=== PATIENT | female | born 1940 | race Caucasian/White ===

== ENCOUNTER 2024-12-16 12:16 | Inpatient (IN) | payer MEDICARE, SELFPAY ==
[2024-12-16] VITALS (14 sets, daily range): BP systolic 96–183; BP diastolic 66–139; PULSE 65–111; RESP 14–24; TEMP 36.2–36.3; O2SAT 92–98; BMI 34.9; BMI 34.4
--- NOTE | 2024-12-16 12:15 | EKG12_ITS ---
Test Reason : Blood Pressure : */* mmHG Vent. Rate : 99 BPM Atrial Rate : 99 BPM P-R Int : 264 ms QRS Dur : 66 ms QT Int : 322 ms P-R-T Axes : * 31 3 degrees QTcB Int : 413 ms Sinus rhythm with 1st degree A-V block Septal infarct , age undetermined Abnormal ECG Confirmed by ANDERS PEREIRA, JOSE ([id number]), newspaper managing editor ROBERTO ALMEIDA ([id number]) on 12/19/2024 8:31:58 AM Referred By: Confirmed By: JOSE MCNAMARA MD
[2024-12-16] MEDS: 0.9% Normal Saline (1000mL) 1,000 ML 999 ML IV (12:18)
--- NOTE | 2024-12-16 12:18 | EX.ED.DYSGE1 ---
HPI History of Present Illness Informant: EMS Narrative Narrative: 84-year-old female was bit by EMS for not feeling well, they state just prior to arrival here she became bradycardic in the 20s, they started supportive care and they shocked the patient with 200 J just prior to arrival because the paramedics thought maybe she was in ventricular fibrillation. I was called to the room upon EMS arrival was a CODE BLUE because the patient lost her pulse and CPR was begun by staff and they gave a milligram of epinephrine. History very limited. PFSH PFSH Home Medications ?Medication ?Instructions ?Recorded ?Last Taken ?Type aspirin 81 mg tablet 81 mg PO DAILY for my heart 12/16/24 12/16/24 History atorvastatin 80 mg tablet 80 mg PO QHS cholesterol 12/16/24 12/15/24 History dulaglutide 4.5 mg/0.5 mL 4.5 mg subcut QWEEK Diabetes 12/16/24 12/05/24 History subcutaneous pen injector (Trulicity) ezetimibe 10 mg tablet 10 mg PO DAILY cholesterol 12/16/24 12/16/24 History lisinopril 40 mg tablet 40 mg PO DAILY BP 12/16/24 12/16/24 History metformin 500 mg tablet 1,000 mg PO BID Diabetes 12/16/24 12/16/24 History metoprolol tartrate 100 mg tablet 200 mg PO BID for my heart 12/16/24 12/16/24 History pioglitazone 45 mg tablet 45 mg PO DAILY Diabetes 12/16/24 12/16/24 History spironolactone 100 mg tablet 100 mg PO DAILY For my Heart 12/16/24 12/16/24 History verapamil 240 mg tablet,extended 240 mg PO BID For ,my heart 12/16/24 12/16/24 History release Allergy/AdvReac Type Severity Reaction Status Date / Time No Known Allergies Allergy Verified 12/16/24 17:20 Social History Smoking Status: Never smoker ROS ROS ED Review of Systems ROS Unobtainable: due to mental status EXAM Physical Exam Const Vital Signs: 12/16/24 12:10 12/16/24 12:15 12/16/24 12:16 Temperature 97.1 F L Temperature Source Axillary Pulse Rate 70 Pulse Rate [3] 111 H Pulse Rate [4] 70 Respiratory Rate 16 17 Respiratory Rate [3] 24 H Respiratory Rate [4] 16 Blood Pressure 183/96 H Blood Pressure [3] 173/94 H Blood Pressure [4] 96/66 Blood Pressure Mean 125 Pulse Ox 94 94 95 Oxygen Delivery Method Nasal Cannula Non-Rebreather Non-Rebreather @ 15L/min Oxygen Flow Rate (L/min) 2 12/16/24 12:16 12/16/24 15:00 12/16/24 15:56 Temperature Temperature Source Pulse Rate 70 65 69 Pulse Rate [3] Pulse Rate [4] Respiratory Rate 18 17 14 Respiratory Rate [3] Respiratory Rate [4] Blood Pressure 183/96 H 101/72 140/103 H Blood Pressure [3] Blood Pressure [4] Blood Pressure Mean 125 81 115 Pulse Ox 94 96 95 Oxygen Delivery Method Non-Rebreather @ 15L/min Room Air Room Air Oxygen Flow Rate (L/min) Positive well nourished, well developed and obese General Appearance ED: well developed and pallor Orientation / Consciousness: obtunded Exam Limitations: altered mental status Nutritional Appearance: obese HEENT normocephalic and atraumatic Eyes PERRL Neck supple Chest Wall inspection of chest normal and palpation of chest normal Resp Resp Narrative: intact slow spontaneous respirations. Breath sounds are bilaterally clear; being assisted by respiratory with bagging. Cardio Cardio Narrative: Normal bradycardic heart sounds. Central pulses palpable with CPR on initial exam; after atropine, 2+ radials. GI non-tender, non-distended and no masses Palpation: soft Neuro Neuro Narrative: stuporous, in and out of consciousness; after more alert w/ atropine, moves all 4 extremities, GCS 3/6/2 = 11. Skin General Skin Exam: pallor Lesions: no lesions Rashes: no rashes MDM MDM MDM Narrative Medical decision making narrative: Patient has no prior records. We were performing some CPR when I evaluated her, but she started moving and groaning so we stop CPR, there was pulse, it was thready, she had a rhythm that was low in the 30s so we gave 1 mg of atropine, and she quickly went up to the 90s and regain consciousness and became dry heaving so we sat her up and gave her some Zofran and IV fluids. She is able to follow commands moving all 4 extremities. EKG obtained at this time and she has a good blood pressure. EKG shows a first-degree AV block but is otherwise fairly unremarkable. Subsequently, patient more arousable, awake, conversive, she feels a lot better and back to normal. She states prior to arrival she was feeling lightheaded like she was going to pass out. She did not have any other symptoms. She states this happened 2 weeks ago where she felt lightheaded but she felt her heart racing/palpitations, but it was relatively brief and went away and she did not present for care. She states she is on verapamil and metoprolol tartrate, the verapamil though she does not have with her but the metoprolol is 100 mg twice daily, she knows she was put on the verapamil because of palpitations in the past but has not seen a api product manager for a long time and it was out of this area and does not know why she is on the metoprolol as well. She denies taking more than she has been supposed to. Discussed with Dr. beckwith and sent him EKG and the EMS strip, okmichael for consulting/keeping the patient. Patient did well clinically, labs reviewed. 1 view chest x-ray shows some pulmonary venous congestion. Lab Data Attestation: I reviewed the patient's lab results. Labs: Laboratory Results - last 24 hr 12/16/24 12/16/24 12:20 14:45 WBC 16.8 H RBC 3.92 L Hgb 11.8 L Hct 37.3 MCV 95.2 MCH 30.1 MCHC 31.6 L RDW Std Deviation 50.2 H RDW Coeff of Graeme 14.4 Plt Count 284 MPV 9.2 Immature Gran % (Auto) 4.600 H Neut % (Auto) 44.4 L Lymph % (Auto) 41.3 H [place] % (Auto) 8.4 Eos % (Auto) 0.7 Baso % (Auto) 0.6 Absolute Neuts (auto) 7.4 Absolute Lymphs (auto) 6.91 H Nucleated RBC % 0.4 Reactive Lymphocytes 1+ Sodium 130 L Potassium 5.4 H Chloride 96 L Carbon Dioxide 14.6 L Anion Gap 19 H BUN 23 H Creatinine 1.73 H Estim Creat Clear Calc 23.27 L Est GFR (MDRD) Non-Af 29 L BUN/Creatinine Ratio 13.4 Glucose 426 H Calcium 8.5 Troponin T High Sens 17 H Troponin T Hi Sens 2 Hr 18 H ABG Data ABG results: ABG 12/16/24 12:24 Specimen Type ART Sample Site L Brach pH 7.24 L Bicarbonate Actual 12.1 L Total CO2 13 Base Excess -15 L O2 Saturation 99 O2 % 100.0 ABG pCO2 28.0 L ABG pO2 184 H Lenny Test Positive O2 Delivery Device NRB Vent Mode Not entered Radiography Diagnostic Testing: Clinical Impression(s) from Imaging Studies Chest X-Ray 12/16/24 12:56 IMPRESSION: No acute cardiopulmonary process Reading Location: [id number] Rhythm Strip Rhythm Strip: Bradycardia? Junctional versus ventricular Rate: 30 Ectopy: None EKG Initial EKG: Attestation: I personally reviewed and interpreted this EKG as follows: Interpretation: Sinus Rhythm (At 99, after atropine see above), No Acute Injury Pattern and AV Block (First-degree) Prior EKG tracings: not available for review Prior: No Prior Management Discussion w/another healthcare provider: Hospitalist and Automatic Corn Grinder Operator Critical Care Time Critical Care Time: Yes Critical care time (excluding procedures): 30-74 minutes (41 min), Including time spent:, Discussing w/Patient &/or Family/Concrete Panel Installer, Discussing w/Consultants, Arranging Admission or Transfer and Performing Direct Patient Care at Bedside Discharge Plan Dx/Rx/DC Orders Clinical Impression: Symptomatic bradycardia, Syncope and collapse, Cardiopulmonary arrest with successful resuscitation Disposition Disposition: [facility] Discharge Date/Time: 12/16/24 17:15
[2024-12-16 12:27] LABS: Allen Test Positive; Base Excess -15 mmol/L (-2 to +2); FI02 100.0; PO2 184 mmHG (75-100); SITE L Brach; SO2 99 % (95-99)
[2024-12-16 12:37] LABS: Differential Indicated SCAN CRITERIA MET; Hematocrit 37.3 % (37-47); Hemoglobin 11.8 g/dL (12.0-15.0); Immature Granulocytes Count 0.770 X10^3/uL (0.0-0.0); Mean Corp Hgb Conc 31.6 g/dL (32-36); Mean Corpuscular Volume 95.2 fL (81-99); Mean Platelet Vol. 9.2 fl (6.2-12.0); NRBC Flagged by Analyzer 0.4 % (0-5); POSITIVE DIFFERENTIAL YES; Platelet Count 284 K/mm3 (150-450); RBC Distribution Width CV 14.4 % (11.6-14.6); RBC Distribution Width SD 50.2 fl (35.1-43.9); Red Blood Count 3.92 M/mm3 (4.2-5.4); White Blood Count 16.8 K/mm3 (4.4-11.0)
--- NOTE | 2024-12-16 12:56 | RAD_ITS ---
PROCEDURE: CHEST 1 VIEW (PORTABLE) 12/16/2024 REASON FOR EXAM: CHEST PAIN TECHNIQUE: Frontal view of the chest. COMPARISON: None FINDINGS: Hardware: EKG leads are seen. Heart: Normal Lungs: Subsegmental atelectasis right lung base. Otherwise, the lungs are clear. Bones: Degenerative changes are identified within the thoracic spine. RAD/Chest 1 View (Portable) IMPRESSION: No acute cardiopulmonary process Reading Location: [id number]
[2024-12-16 13:11] LABS: Reactive Lymphocyte 1+
[2024-12-16 14:15] LABS: Anion Gap 19 (5-15); BUN 23 mg/dL (4-19); BUN/Creat Ratio 13.4 RATIO (10-20); Calcium,Total 8.5 mg/dL (7.6-11.0); Carbon Dioxide 14.6 mmol/L (21.0-32.0); Chloride 96 mmol/L (98-108); Estimated Creatinine Clearance 23.27 ml/min (50-250); Glucose 426 mg/dL (70-99); Potassium 5.4 mmol/L (3.3-5.1); Troponin T High Sensitivity 17 ng/L (<=14)
[2024-12-16 15:25] LABS: Troponin T High Sens 2 HR 18 ng/L (<=14)
--- NOTE | 2024-12-16 16:23 | HP.PCM.HOS_ITS ---
HPI - General General Date of Admission: 12/16/24 Date of Service: 12/16/24 Chief Complaint: gen weakness HPI Narrative JULY AGUIAR, is a 84-year-old female with a history of palpitations and tremors, hypertension and diabetes presented to [facility] ED 12/16/2024 with generalized weakness. [id number] called EMS due to patient being significantly weak since this morning, in the EMS patient became bradycardic in the 20s and started supportive care and there was concern that she may have devolved into V-fib so she was shocked with 200 J just prior to arrival. Patient was called CODE BLUE upon arrival as she reportedly lost her pulse. She got a milligram of epinephrine and CPR started however she started moving so CPR was stopped. Heart rate at the time was in the 30s so she was given 1 mg of atropine and quickly went up to the 90s and regained consciousness. Reportedly patient is on verapamil and metoprolol due to palpitations. In the ED after heart rate improved and patient clinically improved temperature 97.1, heart rate of 78 with blood pressure 183/96, pulse ox 95% and was on rebreather temporarily and then placed on room air. ABG with pH of 7.24, bicarb of 12 and pCO2 of 28. Labs on arrival with a white blood cell count of 16.8 and hemoglobin 11.8. BMP with a sodium of 130, potassium 5.4, bicarb of 14.6 with a gap of 19 and a BUN of 23, creatinine 1.73 but no labs available in our system since 2011, glucose 426. First troponin 17 with a repeat of 18. Chest x-ray with no acute process. ED physician contacted cardiology who recommended admission and she will be seen in consult. Hospitalist contacted for admission. Patient reports history as above, she is feeling weak earlier today so her [id number] called the squad. Notes something similar happened 2 weeks ago however she felt she had a rapid heartbeat and felt sick to her stomach but this ultimately resolved independently. Presently patient feeling better and less weak in the ED ROS ROS Narrative General: Denies fever/chills HENT: Denies headache, denies stuffy nose, denies sore throat EYES: Denies changes in vision Resp: Denies cough, denies shortness of breath Cardiac: Denies chest pain GI: Denies abdominal pain, denies changes in bowel, denies nausea/vomiting : Denies changes in urination Extremity: Denies swelling MSK: Had some generalized weakness that is improved from earlier Neuro: Denies any numbness/tingling Heme: Denies any bleeding or bruising Skin: Denies rashes Psychiatric: No complaints voiced Vital Signs Vital Signs Vital Signs: 12/16/24 12:10 12/16/24 12:15 12/16/24 12:16 Temperature 97.1 F L Temperature Source Axillary Pulse Rate 70 Pulse Rate [3] 111 H Pulse Rate [4] 70 Respiratory Rate 16 17 Respiratory Rate [3] 24 H Respiratory Rate [4] 16 Blood Pressure 183/96 H Blood Pressure [3] 173/94 H Blood Pressure [4] 96/66 Blood Pressure Mean 125 Pulse Ox 94 94 95 Oxygen Delivery Method Nasal Cannula Non-Rebreather Non-Rebreather @ 15L/min Oxygen Flow Rate (L/min) 2 12/16/24 12:16 12/16/24 15:00 12/16/24 15:56 Temperature Temperature Source Pulse Rate 70 65 69 Pulse Rate [3] Pulse Rate [4] Respiratory Rate 18 17 14 Respiratory Rate [3] Respiratory Rate [4] Blood Pressure 183/96 H 101/72 140/103 H Blood Pressure [3] Blood Pressure [4] Blood Pressure Mean 125 81 115 Pulse Ox 94 96 95 Oxygen Delivery Method Non-Rebreather @ 15L/min Room Air Room Air Oxygen Flow Rate (L/min) Weight Weight: 81.3 kg Body Mass Index (BMI) 34.9 Physical Exam Narrative General: Alert, no apparent distress HEENT: Atraumatic, normocephalic Eyes: Anicteric, normal conjunctiva, extraocular movements grossly intact Neck: Supple Respiratory: Seem to have some slight crackles at the bases, normal respiratory effort Cardiovascular: Regular rate and rhythm GI: Soft, nontender, nondistended Extremities: No significant edema Musculoskeletal: Moving all extremities Neuro: No overt focal neurological deficits Skin: No rashes appreciated Psych: Cooperative Results Lab / Micro Data 12/16/24 12:20 12/16/24 12:20 Labs: Laboratory Results - last 24 hr 12/16/24 12:20: WBC 16.8 H, RBC 3.92 L, Hgb 11.8 L, Hct 37.3, MCV 95.2, MCH 30.1, MCHC 31.6 L, RDW Std Deviation 50.2 H, RDW Coeff of Graeme 14.4, Plt Count 284, MPV 9.2, Immature Gran % (Auto) 4.600 H, Neut % (Auto) 44.4 L, Lymph % (Auto) 41.3 H, [place] % (Auto) 8.4, Eos % (Auto) 0.7, Baso % (Auto) 0.6, Absolute Neuts (auto) 7.4, Absolute Lymphs (auto) 6.91 H, Nucleated RBC % 0.4, Reactive Lymphocytes 1+, Sodium 130 L, Potassium 5.4 H, Chloride 96 L, Carbon Dioxide 14.6 L, Anion Gap 19 H, BUN 23 H, Creatinine 1.73 H, Estim Creat Clear Calc 23.27 L, Est GFR (MDRD) Non-Af 29 L, BUN/Creatinine Ratio 13.4, Glucose 426 H, Calcium 8.5, Troponin T High Sens 17 H 12/16/24 14:45: Troponin T Hi Sens 2 Hr 18 H ABG Data ABG results: ABG 12/16/24 12:24 Specimen Type ART Sample Site L Brach pH 7.24 L Bicarbonate Actual 12.1 L Total CO2 13 Base Excess -15 L O2 Saturation 99 O2 % 100.0 ABG pCO2 28.0 L ABG pO2 184 H Lenny Test Positive O2 Delivery Device NRB Vent Mode Not entered Rhythm Strip Rhythm Strip: Bradycardia? Junctional versus ventricular Rate: 30 Ectopy: None Imaging Radiology Impression Chest X-Ray 12/16/24 12:56 IMPRESSION: No acute cardiopulmonary process Reading Location: [id number] Assessment & Plan Assessment/Plan (1) Symptomatic bradycardia: PLAN: Plan # Bradycardia with concern for bradycardia arrest - Patient got shocked for what was thought to be V-fib however sounds as though she may have not had ventricular fibrillation but reportedly lost pulse at 1 point when she was bradycardic and had CPR and atropine - Patient now vitally stable - Echocardiogram - Cardiology consult - Hold verapamil and metoprolol - Awaiting med rec -Of note troponin 17 with repeat of 18 -Will check mag - ED physician discussed with transmissions systems operator, consult placed #Type 2 diabetes mellitus -Glucose checks and sliding scale insulin # Electrolyte abnormalities - This was postacute illness - Will repeat BMP to assess any need for intervention # Elevated creatinine - Unclear baseline - Gentle IV fluids #DVT ppx: SCDs Noreen Llanes MD Charges/Coding Visit Charges Inpatient E&M: 09846 Init Hosp L2
--- NOTE | 2024-12-16 16:46 | CASEMGMT ---
Care Management Face to Face with patient for initial transition planning/care coordination assessment in the ED.? This insurance writer introduced self and role at [facility]. Patient alert and oriented. Patient willing to participate in assessment and is able to answer all questions appropriately.? Care providers, pharmacy, and demographics verified. Admitting Diagnosis: ?Cardiac arrest Other diagnosis history: ? PCP: ?Arelis Specialists: ?Dalia Preferred Pharmacy: [facility] Insurance: ?A[employer] Prescription Benefit: ?yes Living Will/HPOA: ?patient has done but not notarized LNOK: ?Son, Pravin Living Arrangements: ?Patient lives alone in a 2 story home, 1 step to enter. Independent with ADLs and IADLs.? Transportation: ?patient drives DME: ?cane, walker, wheelchair, grab bars in bathroom, bedside commode HHC: ?none SNF/Rehab: ?none Community Resources: ?none Behavioral Health History: ?none Patient goals: Patient wishes to discharge home, denies need for home health care at this time. Patient denies any further needs or concerns at this time. Disposition Plan: admission to acute; RN CM/SW to follow for discharge planning needs that may arise. Radha Torres, FORMING MILL OPERATOR, CARD SCRAPER
--- NOTE | 2024-12-16 17:10 | ED.RN ---
RN called report to MICHAEL Meredith in ICU. All questions answered at this time.
--- NOTE | 2024-12-16 17:20 | ECHOCS_ITS ---
Reason For Study Reason For Study: Arrhythmia Procedure This was a 2D Doppler, Color Flow transthoracic echocardiogram. Contrast injection was performed. The study was technically difficult. Exam performed portable in ICU/CCU. Left Ventricle Normal LV size. Left ventricular systolic function is hyperdynamic. The left ventricular ejection fraction is 75 %. Stage 1 diastolic dysfunction. No regional wall motion abnormalities noted. Right Ventricle Normal RV size. Normal systolic function. Atria Normal left atrium. Mitral Valve Normal mitral valve. Tricuspid Valve Normal tricuspid valve. Pulmonic Valve The pulmonic valve is not well visualized. Great Vessels Normal aortic root. Mildly calcified aortic root. The pulmonary artery is normal size. Inferior vena cava collapse with respiration. Pericardium/Pleural No pericardial effusion. Medication Diluted definity 1ml given slow IV push to enhance endocardial definition. MMode/2D Measurements & Calculations LVIDd: 3.3 cm IVSd: 1.2 cm Ao root diam: 3.4 cm LVIDs: 1.1 cm LVPWd: 0.74 cm FS: 66.2 % LAV(MOD-bp): 23.4 ml RVOT diam: 1.9 cm LVAd ap4: 20.4 cm2 LAV(MOD-bp) Indexed: 13.4 ml/m2 LVLd ap4: 7.2 cm LAV(MOD-sp2): 29.0 ml EDV(MOD-sp4): 47.0 ml LAV(MOD-sp4): 17.6 ml EDV(sp4-el): 48.9 ml LVAs ap4: 7.9 cm2 LVLs ap4: 5.0 cm ESV(MOD-sp4): 10.7 ml ESV(sp4-el): 10.7 ml EF(MOD-sp4): 77.2 % EF(sp4-el): 78.2 % SV(MOD-sp4): 36.3 ml SV(sp4-el): 38.3 ml LA A4 area: 10.3 cm2 SI(MOD-sp4): 20.8 ml/m2 LA dimension(2D): 2.9 cm RA A4 area: 7.2 cm2 Time Measurements MV dec time: 0.12 sec Doppler Measurements & Calculations MV E max manny: 59.3 cm/sec Lat Peak E' Manny: 10.3 cm/sec Med Peak E' Manny: 13.8 cm/sec MV A max manny: 126.9 cm/sec E/E' lat: 5.8 E/E' med: 4.3 MV E/A: 0.47 MV V2 max: 135.8 cm/sec Ao V2 max: 190.9 cm/sec MV max P.4 mmHg MV dec slope: 491.9 cm/sec2 Ao max P.6 mmHg MV V2 mean: 86.9 cm/sec Ao V2 mean: 155.0 cm/sec MV mean P.5 mmHg Ao mean P.2 mmHg MV V2 VTI: 18.6 cm Ao V2 VTI: 39.8 cm AV (velocity ratio): 0.83 LV V1 max: 161.3 cm/sec PA V2 max: 185.9 cm/sec SV(RVOT): 50.9 ml LV V1 max P.4 mmHg PA V2 mean: 127.6 cm/sec LV V1 mean P.2 mmHg PA mean PG (full): 4.0 mmHg LV V1 mean: 130.8 cm/sec LV V1 VTI: 33.2 cm ECHO/Echo Complete W/ Contrast Interpretation Summary Normal LV size. Left ventricular systolic function is hyperdynamic. The left ventricular ejection fraction is 75 %. Stage 1 diastolic dysfunction. Contrast injection was performed. Ordering Physician: Noreen Llanes Referring Physician: Pee Infante Performed By: Ivette Ferrer RDCS, RVT
[2024-12-16 17:48] LABS: Troponin T High Sens 4 HR 21 ng/L (<=14)
[2024-12-16] MEDS: 0.9% Normal Saline (1000mL) 1,000 ML 75 ML IV (18:52)
[2024-12-16 19:36] LABS: Magnesium 2.0 mg/dL (1.5-2.2)
[2024-12-16 19:41] LABS: Anion Gap 9 (5-15); BUN 25 mg/dL (4-19); BUN/Creat Ratio 16.5 RATIO (10-20); Calcium,Total 9.0 mg/dL (7.6-11.0); Carbon Dioxide 21.1 mmol/L (21.0-32.0); Chloride 97 mmol/L (98-108); Estimated Creatinine Clearance 26.62 ml/min (50-250); Glucose 159 mg/dL (70-99); Potassium 7.0 mmol/L (3.3-5.1)
--- NOTE | 2024-12-16 20:14 | PCM.HOSP.N ---
Hospitalist Note Repeated BMP, potassium is hemolyzed so it is lower than what is reported but likely still elevated and consistent with earlier, K lowering cocktail given and repeat potassium ordered
[2024-12-16] MEDS: 0.9% Saline Lock 10 ML Syringe IV ×2 (21:10→21:41)
[2024-12-16 21:24] LABS: Potassium 6.3 mmol/L (3.3-5.1)
[2024-12-16] MEDS: Furosemide 20 MG/2 ML VIAL IV (21:38)
[2024-12-16] MEDS: Insulin Lispro 10 UNIT in Syringe 0 ML 6 UNIT IV (21:39)
[2024-12-17] VITALS (23 sets, daily range): BP systolic 127–179; BP diastolic 63–103; PULSE 82–115; RESP 13–25; TEMP 36.8–37.2; O2SAT 93–99; BMI 34.2
[2024-12-17 01:27] LABS: Potassium 4.9 mmol/L (3.3-5.1)
[2024-12-17 04:38] LABS: Hematocrit 31.2 % (37-47); Hemoglobin 10.8 g/dL (12.0-15.0); Immature Granulocytes Count 0.110 X10^3/uL (0.0-0.0); Mean Corp Hgb Conc 34.6 g/dL (32-36); Mean Corpuscular Volume 88.4 fL (81-99); Mean Platelet Vol. 9.1 fl (6.2-12.0); NRBC Flagged by Analyzer 0 % (0-5); Platelet Count 256 K/mm3 (150-450); RBC Distribution Width CV 14.1 % (11.6-14.6); RBC Distribution Width SD 45.3 fl (35.1-43.9); Red Blood Count 3.53 M/mm3 (4.2-5.4); White Blood Count 15.6 K/mm3 (4.4-11.0)
[2024-12-17 06:12] LABS: Anion Gap 12 (5-15); BUN 23 mg/dL (4-19); BUN/Creat Ratio 16.6 RATIO (10-20); Calcium,Total 9.2 mg/dL (7.6-11.0); Carbon Dioxide 18.9 mmol/L (21.0-32.0); Chloride 96 mmol/L (98-108); Estimated Creatinine Clearance 28.16 ml/min (50-250); Glucose 148 mg/dL (70-99); Potassium 5.2 mmol/L (3.3-5.1)
[2024-12-17] MEDS: Aspirin E.C. 81 MG Tablet PO (08:22)
--- NOTE | 2024-12-17 09:48 | CON.PCM.CC_ITS ---
HPI Consult Data Date of Consult: 12/17/24 HPI Narrative Reason for Consultation: ICU admission HPI Narrative: JULY AGUIAR, is a 84 F who presents following recurrent cardiac arrest yesterday, mechanism somewhat unclear as EMS summoned for her feeling ill and she was iinitially shocked in field for possible VF and also noted to have bradycardiac arrest on arrival requiring some CPR/ drugs but ROSC with neuro intact shortly thereafter. She noted not feeling well yesterday and a similar report of feeling dizzy a few weeks ago which apparently was not evaluated. There is report of hyperkalemia 7.0 but subsequently that value was felt to be spurious as hemolysis reported in the sample. This ASM she reports only chest soreness presumably from CPR. States she has been evaluated for palpitations in the past, denies history of AK or heart disease otherwise. [facility] Home Medications ?Medication ?Instructions ?Recorded ?Last Taken ?Type aspirin 81 mg tablet 81 mg PO DAILY for my heart 12/16/24 12/16/24 History atorvastatin 80 mg tablet 80 mg PO QHS cholesterol 12/15/24 History dulaglutide 4.5 mg/0.5 mL 4.5 mg subcut QWEEK Diabetes 12/16/24 12/05/24 History subcutaneous pen injector (Trulicity) ezetimibe 10 mg tablet 10 mg PO DAILY cholesterol 0 12/16/24 12/16/24 History lisinopril 40 mg tablet 40 mg PO DAILY BP 12/16/24 0 12/16/24 History metformin 500 mg tablet 1,000 mg PO BID Diabetes 12/16/24 History metoprolol tartrate 100 mg tablet 200 mg PO BID for m y heart 12/16/24 12/16/24 History pioglitazone 45 mg tablet 45 mg PO DAILY Diabetes /10/1612/16/24 History spironolactone 100 mg tablet 100 mg PO DAILY For my H eart 12/16/24 12/16/24 History verapamil 240 mg tablet,extended 240 mg PO BID For ,m y heart 12/16/24 12/16/24 History release Allergy/AdvReac Type Severity Reaction Status Date / Time No Known Allergies Allergy Verified 12/16/24 17:20 Social History Smoking Status: Never smoker ROS Constitutional Constitutional: Reports systems reviewed and no addt'l complaints, except as documented Eyes Eyes: Reports none ENT HEENT: Reports systems reviewed and no addt'l complaints, except as documented Cardiovascular Cardiovascular: Reports systems reviewed and no addt'l complaints, except as documented Respiratory/Chest Respiratory/Chest: Reports systems reviewed and no addt'l complaints, except as documented Objective Data Objective Data Vital Signs: Vital Signs Last response 3 Temperature 36.8 C 12/17/24 08:00 Temperature Source Temporal 12/17/24 08:00 Pulse Rate 108 H 12/17/24 09:00 Respiratory Rate 23 H 12/17/24 09:00 Respiratory Effort Normal, Non-Labored 12/17/24 04:00 Respiratory Depth Normal 12/17/24 04:00 Respiratory Pattern Normal 12/17/24 04:00 Blood Pressure 172/91 H 12/17/24 09:00 Blood Pressure Mean 118 12/17/24 09:00 Blood Pressure Source Monitor 12/17/24 09:00 Blood Pressure Position Semi-Fowlers 12/17/24 09:00 Blood Pressure Location Right Arm 12/17/24 09:00 Pulse Ox 97 12/17/24 09:00 Oxygen Delivery Method Room Air 12/17/24 09:00 Oxygen Flow Rate (L/min) 2 12/16/24 12:10 I&O: I&O Last 24 Hours 3 12/16/24 12/16/24 12/17/24 11:59 23:59 11:59 Intake Total 1949 / 1949 1000 / 1000 Output Total 0 / 300 900 / 900 Balance 1950 / 1650 100 / 100 I&O: Total Stay 3 12/16/24 12:07 thru 12/17/24 08:12 Intake Total 2950 Output Total 900 Balance 2050 Current Meds Ordered / Administered: Current meds ordered / Administered 3 Generic Name Dose Route Start Last Admin Trade Name Freq PRN Reason Stop Dose Admin Acetaminophen 650 mg 12/16/24 17:20 12/16/24 20:10 Acetaminophen 325 Mg Tablet PO 650 mg Q6H PRN PRN Administration Pain 1-10 Or Fever >100.7 Albuterol Sulfate 2.5 mg 12/16/24 17:20 Albuterol 2.5 Mg/3 Ml Vial.Neb. INHALATION Q2H PRN PRN SOB &/OR WHEEZING Aspirin 81 mg 12/17/24 08:00 12/17/24 08:22 Aspirin E.C. 81 Mg Tablet PO 81 mg BREAKFAST PERNELL Administration Atorvastatin Calcium 80 mg 12/16/24 22:00 12/16/24 21:04 Atorvastatin Calcium 80 Mg Tablet PO 80 mg QHS PERNELL Administration Ezetimibe 10 mg 12/17/24 10:00 Ezetimibe 10 Mg Tablet PO DAILY PERNELL Glucagon 1 mg 12/16/24 17:20 Glucagon 1 Mg/Ml Syringe IM X1 PRN HYPOGLYCEMIA Protocol Sodium Chloride 1,000 mls @ 15 mls/hr 12/16/24 12:15 12/16/24 13:59 IV Not Given .Q48H PERNELL Dextrose 250 mls @ 0 mls/hr 12/16/24 17:20 Dextrose 10%-Water IV .Q0M PRN HYPOGLYCEMIA Protocol As Directed Insulin Human Lispro 0 unit 12/16/24 22:00 12/17/24 08:18 Insulin Lispro 100 Unit/Ml Insuln.Pen SC Not Given ACHS [facility] Protocol Melatonin 10 mg 12/16/24 17:20 Melatonin 3 Mg Tablet PO QHS PRN PRN INSOMNIA Ondansetron HCl 4 mg 12/16/24 17:20 Ondansetron 4 Mg/2 Ml Vial IV Q8H PRN PRN NAUSEA/VOMITING Oxycodone HCl 2.5 mg 12/16/24 18:41 12/16/24 20:10 Oxycodone 5 Mg Tablet PO 2.5 mg Q6H PRN PRN Administration Pain Score 6-10 Senna/Docusate Sodium 2 tablet 12/16/24 17:20 Senna/Docusate Sodium 1 Tablet PO BID PRN PRN Constipation Sodium Chloride 10 - 40 ml 12/16/24 17:26 12/16/24 21:41 0.9% Saline Lock 10 Ml Syringe IV 10 ml UD PRN Administration SALINE FLUSH Physical Exam Const alert, oriented x3 and no apparent distress General Appearance: cooperative and comfortable HEENT Face and Sinus: normal facial exam Mouth: oral and palatal mucosa normal Eyes PERRL, EOMs intact bilaterally and no scleral icterus General Eye: normal appearance of both eyes Neck full ROM and no JVD General: normal visual inspection and trachea midline Resp normal respiratory effort Effort and Inspection: able to speak in complete sentences Cardio regular rate and regular rhythm Lab / Micro Data 12/17/24 04:23 12/17/24 04:23 Labs: Laboratory Results - last 24 hr 12/16/24 12:20: WBC 16.8 H, RBC 3.92 L, Hgb 11.8 L, Hct 37.3, MCV 95.2, MCH 30.1, MCHC 31.6 L, RDW Std Deviation 50.2 H, RDW Coeff of Graeme 14.4, Plt Count 284, MPV 9.2, Immature Gran % (Auto) 4.600 H, Neut % (Auto) 44.4 L, Lymph % (Auto) 41.3 H, Payne % (Auto) 8.4, Eos % (Auto) 0.7, Baso % (Auto) 0.6, Absolute Neuts (auto) 7.4, Absolute Lymphs (auto) 6.91 H, Nucleated RBC % 0.4, Reactive Lymphocytes 1+, Sodium 130 L, Potassium 5.4 H, Chloride 96 L, Carbon Dioxide 14.6 L, Anion Gap 19 H, BUN 23 H, Creatinine 1.73 H, Estim Creat Clear Calc 23.27 L, Est GFR (MDRD) Non-Af 29 L, BUN/Creatinine Ratio 13.4, Glucose 426 H, Calcium 8.5, Troponin T High Sens 17 H 12/16/24 14:45: Troponin T Hi Sens 2 Hr 18 H 12/16/24 16:40: Troponin T Hi Sens 4Hr 21 H 12/16/24 19:00: Sodium 127 L, Potassium 7.0 H*, Chloride 97 L, Carbon Dioxide 21.1, Anion Gap 9, BUN 25 H, Creatinine 1.50 H, Estim Creat Clear Calc 26.62 L, Est GFR (MDRD) Non-Af 34 L, BUN/Creatinine Ratio 16.5, Glucose 159 H, Calcium 9.0, Magnesium 2.0 12/16/24 20:40: Potassium 6.3 H* 12/16/24 21:08: POC Glucose 146 H 12/17/24 00:45: Potassium 4.9 12/17/24 04:23: WBC 15.6 H, RBC 3.53 L, Hgb 10.8 L, Hct 31.2 L, MCV 88.4 D, MCH 30.6, MCHC 34.6 D, RDW Std Deviation 45.3 H, RDW Coeff of Graeme 14.1, Plt Count 256, MPV 9.1, Immature Gran % (Auto) 0.700, Neut % (Auto) 79.4 H, Lymph % (Auto) 12.0 L, Payne % (Auto) 7.5, Eos % (Auto) 0.2, Baso % (Auto) 0.2, Absolute Neuts (auto) 12.4 H, Absolute Lymphs (auto) 1.87, Nucleated RBC % 0, Sodium 127 L, P otassium 5.2 H, Chloride 96 L, Carbon Dioxide 18.9 L, Anion Gap 12, BUN 23 H, C reatinine 1.41 H, Estim Creat Clear Calc 28.16 L, Est GFR (MDRD) Non-Af 37 L, BUN/Creatinine Ratio 16.6, Glucose 148 H, Hemoglobin A1c 7.5 H, Calcium 9.2, TSH 1.980 ABG Data ABG results: ABG 12/16/24 12:24 Specimen Type ART Sample Site L Brach pH 7.24 L Bicarbonate Actual 12.1 L Total CO2 13 Base Excess -15 L O2 Saturation 99 O2 % 100.0 ABG pCO2 28.0 L ABG pO2 184 H Lenny Test Positive O2 Delivery Device NRB Vent Mode Not entered Rhythm Strip Rhythm Strip: Bradycardia? Junctional versus ventricular Rate: 30 Ectopy: None Imaging Radiology Impression Chest X-Ray 12/16/24 12:56 IMPRESSION: No acute cardiopulmonary process Reading Location: [id number] Assessment and Plan . Assessment and plan: # Recurrent cardiac arrest, bradycardic? - mechanism unclear bradycardic, possibly VFA - hyperkalemia possibly spurious, now normal (aldactone and lisinopril noted) - metabolic acidosis noted at initial presentation though not enough to account K+ of 7 - no evidence of acute injury on ECG - troponin x 2 negative - echocardiogram pending - cardiology eval pending - keep on cardiac cath lab manager until evaluation complete #Type 2 diabetes mellitus -Glucose checks and sliding scale insulin # Elevated creatinine - Unclear baseline - Gentle IV fluids #DVT ppx: SCDs Critical Care Time: 60 minutes The entirety of this encounter was done via Telemedicine
--- NOTE | 2024-12-17 10:30 | CON.PCM.CA_ITS ---
Assessment & Plan Assessment/Plan (1) Symptomatic bradycardia: PLAN: Patient presented with symptomatic bradycardia and a cardiac arrest. I suspect the above was secondary to hyperkalemia. She was on lisinopril, high- dose Aldactone, beta-stephanie as well as high-dose verapamil. All the above will contribute to bradycardia in an 81-year-old together with the hyperkalemia. * Would recommend optimizing medical care by discontinuing the DENIS inhibitor and the mineralocorticoid antagonist. * * Will reduce the dose of the beta-stephanie discontinue verapamil (2) Cardiopulmonary arrest with successful resuscitation: PLAN: Patient successfully resuscitated following bradycardic arrest and electrolyte abnormality. (3) Hypertension: PLAN: The patient has a history of hypertension which does not appear to be well-controlled. Will try and optimize current medical therapy. Her echocardiogram today demonstrated preserved ejection fraction with no wall motion abnormalities and no significant valvular abnormalities present. Estimated ejection fraction is over 60%. Thank you for allowing me to participate in the care of your patient. Please don't hesitate to call if any issues arise. HPI Consult Data Date of Consult: 12/17/24 HPI Narrative HPI Narrative: JULY AGUIAR, is a 84 F who presents to the emergency room after a cardiac arrest for which she needed to have CPR. She was initially noted to be in a bradycardic rhythm underwent CPR and then was given intravenous atropine with improvement in her heart rate. Her blood work later revealed that her potassium was 7 and then subsequently after treatment was noted to be over 6. She also had been complaining of generalized weakness and then was noted to be bradycardic by the time the EMS got there. She does have a history of hypertension she is not followed by any change manager but she is on verapamil, metoprolol, high-dose Aldactone, and lisinopril which she takes on an as-needed basis because it was giving her a cough. After she had CPR in the emergency room as well as atropine the ER physician called us to find out whether she could stay in this hospital or needed to be transferred. A consult was apparently placed for us to see her. This morning she has no complaints other than mild chest aches. She does have a history of hypertension diabetes mellitus and palpitations. She lives alone at home. Her EKGs were reviewed in the initial rhythm appeared to be a junctional bradycardia and then following atropine demonstrated sinus tachycardia with peaked T waves. [facility] Home Medications ?Medication ?Instructions ?Recorded ?Last Taken ?Type aspirin 81 mg tablet 81 mg PO DAILY for my heart 12/16/24 12/16/24 History atorvastatin 80 mg tablet 80 mg PO QHS cholesterol 12/15/24 History dulaglutide 4.5 mg/0.5 mL 4.5 mg subcut QWEEK Diabetes 12/16/24 12/05/24 History subcutaneous pen injector (Trulicity) ezetimibe 10 mg tablet 10 mg PO DAILY cholesterol 0 12/16/24 12/16/24 History lisinopril 40 mg tablet 40 mg PO DAILY BP 12/16/24 0 12/16/24 History metformin 500 mg tablet 1,000 mg PO BID Diabetes 12/16/24 History metoprolol tartrate 100 mg tablet 200 mg PO BID for m y heart 12/16/24 12/16/24 History pioglitazone 45 mg tablet 45 mg PO DAILY Diabetes 11/2312/16/24 History spironolactone 100 mg tablet 100 mg PO DAILY For my H eart 12/16/24 12/16/24 History verapamil 240 mg tablet,extended 240 mg PO BID For ,m y heart 12/16/24 12/16/24 History release Allergy/AdvReac Type Severity Reaction Status Date / Time No Known Allergies Allergy Verified 12/16/24 17:20 Social History Smoking Status: Never smoker ROS Constitutional Constitutional: Denies fever(s) or weight loss Eyes Eyes: Reports systems reviewed and no addt'l complaints, except as documented ENT HEENT: Reports systems reviewed and no addt'l complaints, except as documented Cardiovascular Cardiovascular: Reports palpitations and weakness in extremities; Denies chest pain at rest, chest pain with activity, dyspnea at rest, dyspnea on exertion, edema or paroxysmal nocturnal dyspnea Respiratory/Chest Respiratory/Chest: Denies dyspnea on exertion, productive cough, shortness of breath at rest or shortness of breath with exertion Gastrointestinal Gastrointestinal: Denies change in bowel habits, nausea, vomiting or weight changes Genitourinary Genitourinary: Denies difficulty urinating Musculoskeletal Musculoskeletal: Denies joint stiffness or muscle weakness Integumentary Integumentary: Denies lesions Neurologic Neurologic: Reports weakness; Denies dizziness or syncope Psychiatric Psychiatric: Denies anxiety Endocrine Endocrinology: Denies excessive sweating or fatigue Hematologic/Lymphatic Hematologic/Lymphatic: Denies anemia Allergic/Immunologic Allergic/Immunologic: Denies seasonal rhinorrhea Physical Exam Const alert, oriented x3 and no apparent distress General Appearance: cooperative HEENT hearing grossly normal bilaterally Head and Scalp: atraumatic Eyes EOMs intact bilaterally Neck General: normal visual inspection Chest inspection of chest normal and palpation of chest normal Resp normal respiratory effort Auscultation: clear to auscultation bilaterally Cardio regular rate, regular rhythm, S1 normal heart sound and S2 normal heart sound Jugular Venous Distention: JVD GI normal to inspection, nondistended, normoactive bowel sounds Extremity normal capillary refill and no pedal edema Peripheral Pulses: Yes pulses 2+ throughout and femoral pulses present Skin no rashes or lesions noted Neuro oriented x3 and CN's II-XII intact bilaterally Psych Appearance: grossly normal and appropriate Risk Stratification Risk Stratification Applicable: No Objective Data Vital Signs: Vital Signs Temp Pulse Resp BP Pulse Ox O2 Del Method O2 Flow Rate 98.2 F 108 H 23 H 172/91 H 97 Room Air 2 12/17/24 08:00 12/17/24 09:00 12/17/24 09:00 12/17/24 09:00 12/17/24 09:00 12/17/24 09:00 12/16/24 12:10 Oxygen Flow Rate (L/min) 2 Oxygen Delivery Method Room Air Weight: 174 lb 11.2 oz Body Mass Index (BMI) 34.2 Intake & Output: Intake and Output for Last 24 Hours 12/15/24 12/16/24 12/17/24 23:59 23:59 23:59 Intake Total 1950 / 1950 1000 / 1000 Output Total 0 / 300 900 / 900 Balance 1950 / 1650 100 / 100 Lab / Micro Data 12/17/24 04:23 12/17/24 04:23 Labs: Laboratory Results - last 24 hr 12/16/24 12:20: WBC 16.8 H, RBC 3.92 L, Hgb 11.8 L, Hct 37.3, MCV 95.2, MCH 30.1, MCHC 31.6 L, RDW Std Deviation 50.2 H, RDW Coeff of Graeme 14.4, Plt Count 284, MPV 9.2, Immature Gran % (Auto) 4.600 H, Neut % (Auto) 44.4 L, Lymph % (Auto) 41.3 H, Bullitt % (Auto) 8.4, Eos % (Auto) 0.7, Baso % (Auto) 0.6, Absolute Neuts (auto) 7.4, Absolute Lymphs (auto) 6.91 H, Nucleated RBC % 0.4, Reactive Lymphocytes 1+, Sodium 130 L, Potassium 5.4 H, Chloride 96 L, Carbon Dioxide 14.6 L, Anion Gap 19 H, BUN 23 H, Creatinine 1.73 H, Estim Creat Clear Calc 23.27 L, Est GFR (MDRD) Non-Af 29 L, BUN/Creatinine Ratio 13.4, Glucose 426 H, Calcium 8.5, Troponin T High Sens 17 H 12/16/24 14:45: Troponin T Hi Sens 2 Hr 18 H 12/16/24 16:40: Troponin T Hi Sens 4Hr 21 H 12/16/24 19:00: Sodium 127 L, Potassium 7.0 H*, Chloride 97 L, Carbon Dioxide 21.1, Anion Gap 9, BUN 25 H, Creatinine 1.50 H, Estim Creat Clear Calc 26.62 L, Est GFR (MDRD) Non-Af 34 L, BUN/Creatinine Ratio 16.5, Glucose 159 H, Calcium 9.0, Magnesium 2.0 12/16/24 20:40: Potassium 6.3 H* 12/16/24 21:08: POC Glucose 146 H 12/17/24 00:45: Potassium 4.9 12/17/24 04:23: WBC 15.6 H, RBC 3.53 L, Hgb 10.8 L, Hct 31.2 L, MCV 88.4 D, MCH 30.6, MCHC 34.6 D, RDW Std Deviation 45.3 H, RDW Coeff of Graeme 14.1, Plt Count 256, MPV 9.1, Immature Gran % (Auto) 0.700, Neut % (Auto) 79.4 H, Lymph % (Auto) 12.0 L, Bullitt % (Auto) 7.5, Eos % (Auto) 0.2, Baso % (Auto) 0.2, Absolute Neuts (auto) 12.4 H, Absolute Lymphs (auto) 1.87, Nucleated RBC % 0, Sodium 127 L, P otassium 5.2 H, Chloride 96 L, Carbon Dioxide 18.9 L, Anion Gap 12, BUN 23 H, C reatinine 1.41 H, Estim Creat Clear Calc 28.16 L, Est GFR (MDRD) Non-Af 37 L, BUN/Creatinine Ratio 16.6, Glucose 148 H, Hemoglobin A1c 7.5 H, Calcium 9.2, TSH 1.980 ABG Data ABG results: ABG 12/16/24 12:24 Specimen Type ART Sample Site L Brach pH 7.24 L Bicarbonate Actual 12.1 L Total CO2 13 Base Excess -15 L O2 Saturation 99 O2 % 100.0 ABG pCO2 28.0 L ABG pO2 184 H Lenny Test Positive O2 Delivery Device NRB Vent Mode Not entered Rhythm Strip Rhythm Strip: Bradycardia? Junctional versus ventricular Rate: 30 Ectopy: None Cardiology Labs/Tests 12/16/24 12:20: WBC 16.8 H, RBC 3.92 L, Hgb 11.8 L, Hct 37.3, MCV 95.2, MCH 30.1, MCHC 31.6 L, Plt Count 284, MPV 9.2, Immature Gran % (Auto) 4.600 H, Neut % (Auto) 44.4 L, Lymph % (Auto) 41.3 H, Bullitt % (Auto) 8.4, Eos % (Auto) 0.7, Baso % (Auto) 0.6, Absolute Neuts (auto) 7.4, Nucleated RBC % 0.4, Sodium 130 L, Potassium 5.4 H, Chloride 96 L, Carbon Dioxide 14.6 L, Anion Gap 19 H, BUN 23 H, Creatinine 1.73 H, Est GFR (MDRD) Non-Af 29 L, BUN/Creatinine Ratio 13.4, G lucose 426 H, Calcium 8.5 12/16/24 12:24: pH 7.24 L, Bicarbonate Actual 12.1 L, Base Excess -15 L, O2 Saturation 99, ABG pCO2 28.0 L, ABG pO2 184 H, Lenny Test Positive 12/16/24 19:00: Sodium 127 L, Potassium 7.0 H*, Chloride 97 L, Carbon Dioxide 21.1, Anion Gap 9, BUN 25 H, Creatinine 1.50 H, Est GFR (MDRD) Non-Af 34 L, BUN/Creatinine Ratio 16.5, Glucose 159 H, Calcium 9.0, Magnesium 2.0 12/16/24 20:40: Potassium 6.3 H* 12/17/24 00:45: Potassium 4.9 12/17/24 04:23: WBC 15.6 H, RBC 3.53 L, Hgb 10.8 L, Hct 31.2 L, MCV 88.4 D, MCH 30.6, MCHC 34.6 D, Plt Count 256, MPV 9.1, Immature Gran % (Auto) 0.700, Neut % (Auto) 79.4 H, Lymph % (Auto) 12.0 L, Bullitt % (Auto) 7.5, Eos % (Auto) 0.2, Baso % (Auto) 0.2, Absolute Neuts (auto) 12.4 H, Nucleated RBC % 0, Sodium 127 L, P otassium 5.2 H, Chloride 96 L, Carbon Dioxide 18.9 L, Anion Gap 12, BUN 23 H, C reatinine 1.41 H, Est GFR (MDRD) Non-Af 37 L, BUN/Creatinine Ratio 16.6, Glucose 148 H, Hemoglobin A1c 7.5 H, Calcium 9.2 Rhythm: EKG: ECHO: Stress Test: Cardiac Cath: PCI: CT Surgery: Holter monitor: EPS: PPM: CXR: Chest CT Scan: Radiography Diagnostic Testing: Radiology Impression Chest X-Ray 12/16/24 12:56 IMPRESSION: No acute cardiopulmonary process Reading Location: [facility]
[2024-12-17] MEDS: 0.9% Saline Lock 10 ML Syringe IV ×2 (10:47→21:56)
[2024-12-17] MEDS: 0.9% Normal Saline (1000mL) 1,000 ML 75 ML IV ×2 (10:48→23:46)
[2024-12-17 11:11] LABS: Mucous, Urine 0 SEEN /hpf (<or=2+)
[2024-12-17 11:20] LABS: Color, Urine Yellow (Yellow); Glucose, Dipstick 100 mg/dl (Normal); Ketone-Dipstick Negative (Negative); Leukocyte Esterase-Dipstick Negative /ul (Negative); Nitrite-Dipstick Negative (Negative); Occult Blood-Urine 250 /ul (Negative); Protein-Dipstick 30 mg/dl (Negative); Specific Gravity, Urine 1.010 (1.002-1.030); Urine Bilirubin Dipstick Negative (Negative)
[2024-12-17 11:26] LABS: Red Blood Cells-Urine 5-10 SEEN /hpf (0-5); Squamous Epithelial Cells - UA 0-5 SEEN /hpf (5-10)
--- NOTE | 2024-12-17 13:42 | PN_ITS ---
Subjective Subjective Patient seen and examined. She was having a 2D echo. She was admitted o/a of symptomatic bradycardia and general weakness. There was concern for cardiac arrest as she was thought she had ventricular fibrillation. and lost her pulse at a point. She had CPR and a dose of atropine. CPR was discontinued after she was noted to have her pulse. She was also found to have hyperkalemia. She was given kayexalate and potassium has trended downwards. She is now tachycardic, with HR up now. Objective Data Objective Data Vital Signs: Vital Signs Temp Pulse Resp BP Pulse Ox O2 Del Method O2 Flow Rate 98.4 F 112 H 16 156/67 H 98 Room Air 2 12/17/24 12:00 12/17/24 13:00 12/17/24 13:00 12/17/24 13:00 12/17/24 13:00 12/17/24 13:00 12/16/24 12:10 Oxygen Flow Rate (L/min) 2 Oxygen Delivery Method Room Air Weight: 174 lb 11.2 oz Body Mass Index (BMI) 34.2 Intake & Output: Intake and Output for Last 24 Hours 12/15/24 12/16/24 12/17/24 23:59 23:59 23:59 Intake Total 1950 / 1950 1000 / 1000 Output Total 0 / 300 1800 / 1800 Balance 1950 / 1650 -800 / -800 Lab / Micro Data 12/17/24 04:23 12/17/24 04:23 Labs: Laboratory Results - last 24 hr 12/16/24 12:20: Sodium 130 L, Potassium 5.4 H, Chloride 96 L, Carbon Dioxide 14.6 L, Anion Gap 19 H, BUN 23 H, Creatinine 1.73 H, Estim Creat Clear Calc 23.27 L, Est GFR (MDRD) Non-Af 29 L, BUN/Creatinine Ratio 13.4, Glucose 426 H, Calcium 8.5, Troponin T High Sens 17 H 12/16/24 14:45: Troponin T Hi Sens 2 Hr 18 H 12/16/24 16:40: Troponin T Hi Sens 4Hr 21 H 12/16/24 19:00: Sodium 127 L, Potassium 7.0 H*, Chloride 97 L, Carbon Dioxide 21.1, Anion Gap 9, BUN 25 H, Creatinine 1.50 H, Estim Creat Clear Calc 26.62 L, Est GFR (MDRD) Non-Af 34 L, BUN/Creatinine Ratio 16.5, Glucose 159 H, Calcium 9.0, Magnesium 2.0 12/16/24 20:40: Potassium 6.3 H* 12/16/24 21:08: POC Glucose 146 H 12/17/24 00:45: Potassium 4.9 12/17/24 04:23: WBC 15.6 H, RBC 3.53 L, Hgb 10.8 L, Hct 31.2 L, MCV 88.4 D, MCH 30.6, MCHC 34.6 D, RDW Std Deviation 45.3 H, RDW Coeff of Graeme 14.1, Plt Count 256, MPV 9.1, Immature Gran % (Auto) 0.700, Neut % (Auto) 79.4 H, Lymph % (Auto) 12.0 L, [place] % (Auto) 7.5, Eos % (Auto) 0.2, Baso % (Auto) 0.2, Absolute Neuts (auto) 12.4 H, Absolute Lymphs (auto) 1.87, Nucleated RBC % 0, Sodium 127 L, P otassium 5.2 H, Chloride 96 L, Carbon Dioxide 18.9 L, Anion Gap 12, BUN 23 H, C reatinine 1.41 H, Estim Creat Clear Calc 28.16 L, Est GFR (MDRD) Non-Af 37 L, BUN/Creatinine Ratio 16.6, Glucose 148 H, Hemoglobin A1c 7.5 H, Calcium 9.2, TSH 1.980 12/17/24 08:17: POC Glucose 145 H 12/17/24 11:05: Urine Color Yellow, Urine Clarity Sl. Cloudy, Urine pH 6.0, Ur Specific [place] 1.010, Urine Protein 30 H, Urine Glucose (UA) 100 H, Urine Ketones Negative, Urine Occult Blood 250 H, Urine Nitrite Negative, Urine Bilirubin Negative, Urine Urobilinogen Normal, Ur Leukocyte Esterase Negative, Urine RBC 5-10 SEEN, Urine WBC 0-5 SEEN, Ur Squamous Epith Cells 0-5 SEEN, Urine Bacteria 0 SEEN, Urine Mucus 0 SEEN 12/17/24 11:49: POC Glucose 177 H Radiography Diagnostic Testing: Radiology Impression Chest X-Ray 12/16/24 12:56 IMPRESSION: No acute cardiopulmonary process Reading Location: [facility] Echocardiogram 12/16/24 17:20 Interpretation Summary Normal LV size. Left ventricular systolic function is hyperdynamic. The left ventricular ejection fraction is 75 %. Stage 1 diastolic dysfunction. Contrast injection was performed. Ordering Physician: Noreen Llanes Referring Physician: Pee Infante Performed By: Ivette Ferrer, KRISTAN, RVT Rhythm Strip Rhythm Strip: Bradycardia? Junctional versus ventricular Rate: 30 Ectopy: None Physical Exam Const alert, oriented x3 and no apparent distress Constitutional Narrative: class I obesity with BMI of 34. General Appearance: cooperative HEENT normocephalic, head/scalp atraumatic, moist oral mucous membranes and oropharynx normal Eyes PERRL and EOMs intact bilaterally Neck no lymphadenopathy and supple Lymph Lymphatic: no lymphadenopathy noted Resp normal respiratory effort, normal air movement and clear to auscultation bilaterally Cardio regular rhythm, S1 normal heart sound, S2 normal heart sound and no murmurs Cardio Narrative: tachycardia GI normal to inspection, nondistended, normoactive bowel sounds, soft to palpation, non-tender and non-distended Extremity normal capillary refill, no clubbing, cyanosis or edema and no calf tenderness General Extremity: no tenderness to palpation of joints or extremities Skin General Skin Exam: no breakdown Neuro CN's II-XII intact bilaterally, no focal motor deficits, no sensory deficits noted and deep tendon reflexes 2+ bilaterally Motor Exam: general weakness Psych thought process normal and cooperative Appearance: appropriate Assessment & Plan Assessment/Plan (1) Cardiopulmonary arrest with successful resuscitation: (2) Symptomatic bradycardia: (3) Syncope and collapse: (4) Hypertension: PLAN: Plan # Symptomatic bradycardia * Patient admitted with complaint of generalized weakness and found to be bradycardic. She also got shocked for was thought to be V-fib and also lost her pulse ox point and so had CPR and was given a dose of atropine. * Or beta-blockers on hold. She was found to be hyperkalemic with potassium of around 7. Potassium has trended down now. * Verapamil and metoprolol on hold. * Cardiology on board. Heart rate is actually now elevated and she is mildly tachycardic. Troponins were not elevated. * 2D echo today showed EF of 75% with stage I diastolic dysfunction and no regional wall motion abnormalities noted. * Critical care also on board. Per cardiology to reduce the dose of beta- stephanie and to discontinue the verapamil. * #Type 2 diabetes mellitus: * Sliding scale. Accu-Cheks ACHS. #Elevated creatinine: * Creatinine has 1.41. Was 1.73 on admission. * It is not clear whether this is JEANNETTE or CKD as the only known previous creatinine in the EMR was from 2011 and was 0.87. #Hyponatremia: * Sodium is 127. * In light of the low sodium and elevated potassium he does bring questions of adrenal insufficiency. However she is not hypotensive. * Will monitor closely and see. * Hydrate with IV fluids as EF is normal. * TSH is normal. * #Hypertension: On lisinopril. Verapamil discontinued and metoprolol dose reduced as above. Also on spironolactone. Lisinopril and spironolactone on hold. #Type 2 diabetes mellitus: * Metformin on hold. On Trulicity weekly. * Insulin sliding scale. Accu-Cheks ACHS. * Also on pioglitazone which is also on hold #Hyperlipidemia: On statin DVT prophylaxis: start lovenox, renal dosing Charges/Coding Visit Charges Inpatient E&M: 09547 [facility] L3
--- NOTE | 2024-12-17 14:45 | CASEMGMT ---
RN FABIAN NOTE: PT/OT evals reviewed. Pt ambulated total of 100 ft w/use of WW, CGA, additional therapy recommended. RN CM to room. Pt sitting up in chair, visitor @ bedside. Discussed discharge planning. Pt wishes to discharge home and states she feels she will be safe to discharge home alone. She is interested in HHC. Pt chose [facility] as 1st choice. Pt also provided w/list of other [facility] providers including quality and resource use data and consistent with the patient?s preferred geographic region, medical needs, and insurance network were provided from the [employer] Guide. Pt made aware HHC unable to be set up over the weekend but VM could be left on the referral line @ [facility] and someone would f/u with her on Thursday @ home, if she discharges by then. Discussed DME. Pt was not using a WW prior to admission, but states she does have access to a standard walker @ home (it was her late husbands). She is interested in getting a rollator. Made aware this can not obtained over the weekend but a script could be provided and she could take to location of choice. Verbal list of local DME companies given. She voices appreciation. Visitor @ bedside states they will most likely get it from [facility] [place], as [place] familiar with their location. Pt and visitor made aware insurance only covers for a portion of the rollator and they voice understanding. Pt denies having further discharge needs or concerns. Call placed to [facility] and VM left re: referral for HHC: SN and PT. E-mail sent to FABIAN Kuhn director, to ensure someone f/u with pt re: HHC on Thursday if pt discharges home over the weekend. Green sheet placed on chart for rollator. Jayde VARGASN RN CM
[2024-12-17] MEDS: MELATONIN 3 MG TABLET 10 MG PO (22:02)
[2024-12-18 02:45] VITALS: BMI 34.6
[2024-12-18 03:00] VITALS: PULSE 72
[2024-12-18 03:57] VITALS: BP 145/72; PULSE 73; RESP 17; TEMP 35.7; O2SAT 94
[2024-12-18 06:11] LABS: Hematocrit 31.9 % (37-47); Hemoglobin 10.9 g/dL (12.0-15.0); Immature Granulocytes Count 0.050 X10^3/uL (0.0-0.0); Mean Corp Hgb Conc 34.2 g/dL (32-36); Mean Corpuscular Volume 89.1 fL (81-99); Mean Platelet Vol. 9.2 fl (6.2-12.0); NRBC Flagged by Analyzer 0 % (0-5); Platelet Count 217 K/mm3 (150-450); RBC Distribution Width CV 14.2 % (11.6-14.6); RBC Distribution Width SD 45.9 fl (35.1-43.9); Red Blood Count 3.58 M/mm3 (4.2-5.4); White Blood Count 8.6 K/mm3 (4.4-11.0)
[2024-12-18 06:31] LABS: Anion Gap 10 (5-15); BUN 19 mg/dL (4-19); BUN/Creat Ratio 21.3 RATIO (10-20); Calcium,Total 8.6 mg/dL (7.6-11.0); Carbon Dioxide 21.6 mmol/L (21.0-32.0); Chloride 99 mmol/L (98-108); Estimated Creatinine Clearance 43.85 ml/min (50-250); Glucose 172 mg/dL (70-99); Potassium 4.2 mmol/L (3.3-5.1)
[2024-12-18 09:20] VITALS: BP 157/78; PULSE 98; RESP 17; TEMP 36.5; O2SAT 95
[2024-12-18 09:26] VITALS: PULSE 98
[2024-12-18] MEDS: Aspirin E.C. 81 MG Tablet PO (09:26)
[2024-12-18] MEDS: 0.9% Saline Lock 10 ML Syringe IV (09:39)
--- NOTE | 2024-12-18 09:43 | PN.CARD_ITS ---
Subjective Subjective Patient seen and evaluated. Objective Data Vital Signs: Vital Signs Temp Pulse Resp BP Pulse Ox O2 Del Method O2 Flow Rate 97.7 F L 98 17 157/78 H 95 Room Air 2 12/18/24 09:20 12/18/24 09:26 12/18/24 09:20 12/18/24 09:20 12/18/24 09:20 12/18/24 09:29 12/16/24 12:10 Oxygen Flow Rate (L/min) 2 Oxygen Delivery Method Room Air Weight: 176 lb 5.917 oz Body Mass Index (BMI) 34.6 Intake & Output: Intake and Output for Last 24 Hours 12/16/24 12/17/24 12/18/24 23:59 23:59 23:59 Intake Total 1950 / 1950 2000.00 / 2000.00 741.25 / 741.25 Output Total 0 / 300 1800 / 1800 1100 / 1100 Balance 1950 / 1650 200.00 / 200.00 -358.75 / -358.75 Lab / Micro Data 12/18/24 05:35 12/18/24 05:35 Labs: Laboratory Results - last 24 hr 12/17/24 08:17: POC Glucose 145 H 12/17/24 11:05: Urine Color Yellow, Urine Clarity Sl. Cloudy, Urine pH 6.0, Ur Specific [place] 1.010, Urine Protein 30 H, Urine Glucose (UA) 100 H, Urine Ketones Negative, Urine Occult Blood 250 H, Urine Nitrite Negative, Urine Bilirubin Negative, Urine Urobilinogen Normal, Ur Leukocyte Esterase Negative, Urine RBC 5-10 SEEN, Urine WBC 0-5 SEEN, Ur Squamous Epith Cells 0-5 SEEN, Urine Bacteria 0 SEEN, Urine Mucus 0 SEEN 12/17/24 11:49: POC Glucose 177 H 12/17/24 16:18: POC Glucose 197 H 12/17/24 21:52: POC Glucose 164 H 12/18/24 05:35: WBC 8.6, RBC 3.58 L, Hgb 10.9 L, Hct 31.9 L, MCV 89.1, MCH 30.4, MCHC 34.2, RDW Std Deviation 45.9 H, RDW Coeff of Graeme 14.2, Plt Count 217, MPV 9.2, Immature Gran % (Auto) 0.600, Neut % (Auto) 60.7, Lymph % (Auto) 24.5, [place] % (Auto) 12.5 H, Eos % (Auto) 1.5, Baso % (Auto) 0.2, Absolute Neuts (auto) 5.2, Absolute Lymphs (auto) 2.11, Nucleated RBC % 0, Sodium 131 L, Potassium 4.2, Chloride 99, Carbon Dioxide 21.6, Anion Gap 10, BUN 19, Creatinine 0.91, Estim Creat Clear Calc 43.85 L, Est GFR (MDRD) Non-Af 63, BUN/Creatinine Ratio 21.3 H, Glucose 172 H, Calcium 8.6 12/18/24 06:36: POC Glucose 169 H Rhythm Strip Rhythm Strip: Bradycardia? Junctional versus ventricular Rate: 30 Ectopy: None Cardiology Labs/Tests 12/17/24 11:05: Urine Color Yellow, Urine Clarity Sl. Cloudy, Urine pH 6.0, Ur Specific [place] 1.010, Urine Protein 30 H, Urine Glucose (UA) 100 H, Urine Ketones Negative, Urine Occult Blood 250 H, Urine Nitrite Negative, Urine Bilirubin Negative, Urine Urobilinogen Normal, Ur Leukocyte Esterase Negative, Urine RBC 5-10 SEEN, Urine WBC 0-5 SEEN 12/18/24 05:35: WBC 8.6, RBC 3.58 L, Hgb 10.9 L, Hct 31.9 L, MCV 89.1, MCH 30.4, MCHC 34.2, Plt Count 217, MPV 9.2, Immature Gran % (Auto) 0.600, Neut % (Auto) 60.7, Lymph % (Auto) 24.5, [place] % (Auto) 12.5 H, Eos % (Auto) 1.5, Baso % (Auto) 0.2, Absolute Neuts (auto) 5.2, Nucleated RBC % 0, Sodium 131 L, Potassium 4.2, Chloride 99, Carbon Dioxide 21.6, Anion Gap 10, BUN 19, Creatinine 0.91, Est GFR (MDRD) Non-Af 63, BUN/Creatinine Ratio 21.3 H, Glucose 172 H, Calcium 8.6 Rhythm: EKG: ECHO: Stress Test: Cardiac Cath: PCI: CT Surgery: Holter monitor: EPS: PPM: CXR: Chest CT Scan: Radiography Diagnostic Testing: Radiology Impression Echocardiogram 12/16/24 17:20 Interpretation Summary Normal LV size. Left ventricular systolic function is hyperdynamic. The left ventricular ejection fraction is 75 %. Stage 1 diastolic dysfunction. Contrast injection was performed. Ordering Physician: Noreen Llanes Referring Physician: Pee Infante Performed By: Ivette Ferrer, STEPHANCS, RVT Physical Exam Const alert, oriented x3 and no apparent distress Constitutional Narrative: class I obesity with BMI of 34. General Appearance: cooperative HEENT normocephalic, head/scalp atraumatic, moist oral mucous membranes and oropharynx normal Eyes PERRL and EOMs intact bilaterally Neck no lymphadenopathy and supple Lymph Lymphatic: no lymphadenopathy noted Resp normal respiratory effort, normal air movement and clear to auscultation bilaterally Cardio regular rhythm, S1 normal heart sound, S2 normal heart sound and no murmurs Cardio Narrative: tachycardia GI normal to inspection, nondistended, normoactive bowel sounds, soft to palpation, non-tender and non-distended Extremity normal capillary refill, no clubbing, cyanosis or edema and no calf tenderness General Extremity: no tenderness to palpation of joints or extremities Skin General Skin Exam: no breakdown Neuro CN's II-XII intact bilaterally, no focal motor deficits, no sensory deficits noted and deep tendon reflexes 2+ bilaterally Motor Exam: general weakness Psych thought process normal and cooperative Appearance: appropriate Assessment & Plan Assessment/Plan (1) Symptomatic bradycardia: PLAN: Patient presented with symptomatic bradycardia and a cardiac arrest. I suspect the above was secondary to hyperkalemia. She was on lisinopril, high- dose Aldactone, beta-stephanie as well as high-dose verapamil. All the above will contribute to bradycardia in an 81-year-old together with the hyperkalemia. * Would recommend optimizing medical care by discontinuing the DENIS inhibitor and the mineralocorticoid antagonist. The verapamil has also been discontinued. Heart rate is much better today. * (2) Cardiopulmonary arrest with successful resuscitation: PLAN: Patient successfully resuscitated following bradycardic arrest and electrolyte abnormality. (3) Hypertension: PLAN: The patient has a history of hypertension which does not appear to be well-controlled. Will try and optimize current medical therapy. Her echocardiogram today demonstrated preserved ejection fraction with no wall motion abnormalities and no significant valvular abnormalities present. Estimated ejection fraction is over 60%. Will start amlodipine 10 mg a day Continue metoprolol 50 mg twice a day. Probably safe to discharge later today Thank you for allowing me to participate in the care of your patient. Please don't hesitate to call if any issues arise.
--- NOTE | 2024-12-18 12:21 | PN.CC_ITS ---
Objective Data Objective Data Vital Signs: Vital Signs Last response 3 Temperature 36.5 C L 12/18/24 09:20 Temperature Source Oral 12/18/24 09:20 Pulse Rate 98 12/18/24 09:26 Respiratory Rate 17 12/18/24 09:20 Respiratory Effort Normal, Non-Labored 12/17/24 04:00 Respiratory Depth Normal 12/17/24 04:00 Respiratory Pattern Normal 12/17/24 04:00 Blood Pressure 157/78 H 12/18/24 09:20 Blood Pressure Mean 104 12/18/24 09:20 Blood Pressure Source Monitor 12/18/24 09:20 Blood Pressure Position Semi-Fowlers 12/18/24 09:20 Blood Pressure Location Right Arm 12/18/24 09:20 Pulse Ox 95 12/18/24 09:20 Oxygen Delivery Method Room Air 12/18/24 09:29 Oxygen Flow Rate (L/min) 2 12/16/24 12:10 I&O: I&O Last 24 Hours 3 12/17/24 12/18/24 12/18/24 23:59 11:59 23:59 Intake Total 1000.00 / 2000.00 1241.25 / 1241.25 Output Total 900 / 1800 1100 / 1100 Balance 100.00 / 200.00 141.25 / 141.25 I&O: Total Stay 3 12/16/24 12:07 thru 12/18/24 11:31 Intake Total 5191.25 Output Total 2900 Balance 2291.25 Current Meds Ordered / Administered: Current meds ordered / Administered 3 Generic Name Dose Route Start Last Admin Trade Name Brendanq PRN Reason Stop Dose Admin Acetaminophen 650 mg 12/16/24 17:20 12/17/24 22:02 Acetaminophen 325 Mg Tablet PO 650 mg Q6H PRN PRN Administration Pain 1-10 Or Fever >100.7 Albuterol Sulfate 2.5 mg 12/16/24 17:20 Albuterol 2.5 Mg/3 Ml Vial.Neb. INHALATION Q2H PRN PRN SOB &/OR WHEEZING Amlodipine Besylate 10 mg 12/17/24 11:00 12/18/24 09:25 Amlodipine 10 Mg Tablet PO 10 mg DAILY PERNELL Administration Protocol Aspirin 81 mg 12/17/24 08:00 12/18/24 09:26 Aspirin E.C. 81 Mg Tablet PO 81 mg BREAKFAST PERNELL Administration Atorvastatin Calcium 80 mg 12/16/24 22:00 12/17/24 21:56 Atorvastatin Calcium 80 Mg Tablet PO 80 mg QHS PERNELL Administration Enoxaparin Sodium 30 mg 12/18/24 10:00 12/18/24 09:26 Enoxaparin 30 Mg/0.3 Ml Syringe SC 30 mg DAILY PERNELL Administration Glucagon 1 mg 12/16/24 17:20 Glucagon 1 Mg/Ml Syringe IM X1 PRN HYPOGLYCEMIA Protocol Dextrose 250 mls @ 0 mls/hr 12/16/24 17:20 Dextrose 10%-Water IV .Q0M PRN HYPOGLYCEMIA Protocol As Directed Sodium Chloride 250 mls @ 15 mls/hr 12/17/24 17:06 IV .[id number] PRN Saline Flush Sodium Chloride 250 mls @ 15 mls/hr 12/17/24 17:06 IV .[id number] PRN Additional IVPB Infusion Insulin Human Lispro 0 unit 12/16/24 22:00 12/18/24 11:30 Insulin Lispro 100 Unit/Ml Insuln.Pen SC 4 units ACHS PERNELL Administration Protocol Melatonin 10 mg 12/16/24 17:20 12/17/24 22:02 Melatonin 3 Mg Tablet PO 9 mg QHS PRN PRN Administration INSOMNIA Metoprolol Tartrate 50 mg 12/17/24 15:30 12/18/24 09:26 Metoprolol Tartrate 50 Mg Tablet PO 50 mg BID PERNELL Administration Protocol Ondansetron HCl 4 mg 12/16/24 17:20 Ondansetron 4 Mg/2 Ml Vial IV Q8H PRN PRN NAUSEA/VOMITING Oxycodone HCl 2.5 mg 12/16/24 18:41 12/16/24 20:10 Oxycodone 5 Mg Tablet PO 2.5 mg Q6H PRN PRN Administration Pain Score 6-10 Senna/Docusate Sodium 2 tablet 12/16/24 17:20 Senna/Docusate Sodium 1 Tablet PO BID PRN PRN Constipation Sodium Chloride 10 - 40 ml 12/16/24 17:26 12/18/24 09:39 0.9% Saline Lock 10 Ml Syringe IV 10 ml UD PRN Administration SALINE FLUSH Lab / Micro Data 12/18/24 05:35 12/18/24 05:35 Labs: Laboratory Results - last 24 hr 12/17/24 16:18: POC Glucose 197 H 12/17/24 21:52: POC Glucose 164 H 12/18/24 05:35: WBC 8.6, RBC 3.58 L, Hgb 10.9 L, Hct 31.9 L, MCV 89.1, MCH 30.4, MCHC 34.2, RDW Std Deviation 45.9 H, RDW Coeff of Graeme 14.2, Plt Count 217, MPV 9.2, Immature Gran % (Auto) 0.600, Neut % (Auto) 60.7, Lymph % (Auto) 24.5, [place] % (Auto) 12.5 H, Eos % (Auto) 1.5, Baso % (Auto) 0.2, Absolute Neuts (auto) 5.2, Absolute Lymphs (auto) 2.11, Nucleated RBC % 0, Sodium 131 L, Potassium 4.2, Chloride 99, Carbon Dioxide 21.6, Anion Gap 10, BUN 19, Creatinine 0.91, Estim Creat Clear Calc 43.85 L, Est GFR (MDRD) Non-Af 63, BUN/Creatinine Ratio 21.3 H, Glucose 172 H, Calcium 8.6 12/18/24 06:36: POC Glucose 169 H Rhythm Strip Rhythm Strip: Bradycardia? Junctional versus ventricular Rate: 30 Ectopy: None Imaging Radiology Impression Echocardiogram 12/16/24 17:20 Interpretation Summary Normal LV size. Left ventricular systolic function is hyperdynamic. The left ventricular ejection fraction is 75 %. Stage 1 diastolic dysfunction. Contrast injection was performed. Ordering Physician: Noreen Llanes Referring Physician: Pee Infante Performed By: Ivette Ferrer RDCS, RVT Assessment and Plan . Assessment and plan: Assessment and plan: # Recurrent cardiac arrest, bradycardic? - both bradycardic and VFA - working hypothesis is hyperkalemia related to aldactone and lisinopril - metabolic acidosis noted at initial presentation though not enough to account K+ of 7 - no evidence of acute injury on ECG - troponins negative - echocardiogram negative - cardiology eval noted - It seems home discharge tentaively planned today Critical Care Time: The entirety of this encounter was done via Telemedicine Physical Exam Const alert, oriented x3 and no apparent distress General Appearance: cooperative, comfortable and well kempt Orientation / Consciousness: awake, oriented to person, oriented to place and oriented to time Exam Limitations: no limitations HEENT normocephalic and head/scalp atraumatic Head and Scalp: normal to inspection Eyes General Eye: normal appearance of both eyes Neck full ROM Resp normal respiratory effort Cardio regular rate and regular rhythm Subjective Subjective Looks great, no further arrhythmia or other developments noted.
--- NOTE | 2024-12-18 13:19 | DCINST_ITS ---
Discharge Instructions DC O2, CPAP, BIPAP needs Home O2 Discharge instructions: No Dressing / Incision Discharge Activity: Return to Normal Activity Weight Bearing Status: Weight bearing as tolerated Dressing / Incision Call your doctor if you observe: Fever of 101 or Higher, Shortness of breath, Dizziness, Swelling in the ankles and Chest pain Follow Up Care Test Results: Test results from this visit will be discussed in further detail at your follow- up appointment, if applicable. Discharge Plan Admission Admit Date/Time: 12/16/24 16:23 Primary Reason for Your Visit: symptomatic bradycardia Attending Provider: Regina Amdao Primary Care Provider: Pee Infante Consulting Providers: Noreen Llanes; Gal Roth; Cristian Juan; Jonathon King; Ron Mueller; Matt Marinelli; Jeyson Hinds; Neville Cruz; Matty Saldana; Hafsa Timmons; Elliot Tiwari; Eduardo Ferguson; Live Escamilla; Elle Rowe; Kriss Jasso; Rosanne Cabezas; Aram Peña; Krishna Miranda; Inder Mcgarry; Elvis Watters; Rusty Fletcher; Alexandra Romero; Germán Anaya; Kirill Morrow; Kevin De Guzman Instructions Patient Instructions: Understanding Bradycardia Discharge Orders/Prescriptions Prescriptions: New amlodipine 10 mg Tablet 10 mg PO DAILY Qty: 30 2RF metoprolol tartrate 50 mg Tablet 50 mg PO BID Qty: 60 2RF Continued atorvastatin 80 mg tablet 80 mg PO QHS ezetimibe 10 mg tablet 10 mg PO DAILY lisinopril 40 mg tablet 40 mg PO DAILY metformin 500 mg tablet 1,000 mg PO BID pioglitazone 45 mg tablet 45 mg PO DAILY Trulicity 4.5 mg/0.5 mL pen injector 4.5 mg subcut QWEEK aspirin 81 mg tablet 81 mg PO DAILY Discontinued metoprolol tartrate 100 mg tablet 200 mg PO BID spironolactone 100 mg tablet 100 mg PO DAILY verapamil 240 mg tablet extended release 240 mg PO BID Referrals / Follow Up: Gal Roth MD [Med Staff - Active Staff] - Within 2 Weeks Pee Infante MD [Primary Care Provider] - Within 1 Week Disposition Disposition (needs filled in before D/C Order can be placed): Home, Self Care
--- NOTE | 2024-12-18 13:23 | PCM.DC.SUM ---
Providers Date of Admission: 12/16/24 Date of Discharge: 12/18/24 Primary Care Physician: Dr. Pee Infante MD Consultations 12/16/24 17:20 Consult: Cardiology Routine Consulting Provider: Gal Roth Reason for Consult: Bradycardia w/ suspected da arrest, brief CPR, atropine, now stable EMERGENT Consult: No Notified: Yes Date Notified: 12/16/24 Time Notified: 17:07 Method of Notification: ED Physician Initiated Consult: Machine [employer] / Pulmonary Medicine Routine Consulting Provider: Intensivists/Pulmonary Med Reason for Consult: concern for bradycardic arrest, cpr and atropine EMERGENT Consult: No MD Notified: Yes Date Notified: 12/16/24 Time Notified: 17:09 Method of Notification: ED Physician Initiated Reason For Visit: BRADYCARDIA ARREST Diagnosis Discharge Diagnosis (1) Symptomatic bradycardia: Status: Acute Code(s): R00.1 - Bradycardia, unspecified (2) Cardiopulmonary arrest with successful resuscitation: Status: Acute Code(s): I46.9 - Cardiac arrest, cause unspecified (3) Hypertension: Status: Chronic Code(s): I10 - Essential (primary) hypertension Plan # Symptomatic bradycardia Patient admitted with complaint of generalized weakness and found to be bradycardic. She also got shocked for was thought to be V-fib and also lost her pulse ox point and so had CPR and was given a dose of atropine. Or beta-blockers on hold. She was found to be hyperkalemic with potassium of around 7. Potassium has trended down now. Verapamil and metoprolol on hold. Cardiology on board. Heart rate is actually now elevated and she is mildly tachycardic. Troponins were not elevated. 2D echo today showed EF of 75% with stage I diastolic dysfunction and no regional wall motion abnormalities noted. Critical care also on board. Per cardiology to reduce the dose of beta-stephanie and to discontinue the verapamil. #Type 2 diabetes mellitus: Sliding scale. Accu-Cheks ACHS. #Elevated creatinine: Creatinine has 1.41. Was 1.73 on admission. It is not clear whether this is JEANNETTE or CKD as the only known previous creatinine in the EMR was from 2011 and was 0.87. #Hyponatremia: Sodium is 127. In light of the low sodium and elevated potassium he does bring questions of adrenal insufficiency. However she is not hypotensive. Will monitor closely and see. Hydrate with IV fluids as EF is normal. TSH is normal. #Hypertension: On lisinopril. Verapamil discontinued and metoprolol dose reduced as above. Also on spironolactone. Lisinopril and spironolactone on hold. #Type 2 diabetes mellitus: Metformin on hold. On Trulicity weekly. Insulin sliding scale. Accu-Cheks ACHS. Also on pioglitazone which is also on hold #Hyperlipidemia: On statin DVT prophylaxis: start lovenox, renal dosing Medications at Discharge Home Medications aspirin 81 mg tablet 81 mg PO DAILY for my heart 12/16/24 atorvastatin 80 mg tablet 80 mg PO QHS cholesterol 12/16/24 dulaglutide 4.5 mg/0.5 mL subcutaneous pen injector (Trulicity) 4.5 mg subcut QWEEK Diabetes 12/16/24 ezetimibe 10 mg tablet 10 mg PO DAILY cholesterol 12/16/24 lisinopril 40 mg tablet 40 mg PO DAILY BP 12/16/24 metformin 500 mg tablet 1,000 mg PO BID Diabetes 12/16/24 pioglitazone 45 mg tablet 45 mg PO DAILY Diabetes 12/16/24 amlodipine 10 mg tablet 10 mg PO DAILY #30 tabs 12/18/24 metoprolol tartrate 50 mg tablet 50 mg PO BID #60 tabs 12/18/24 Hospital Course Operations None Procedures 2-D Echocardiogram Summary of Care Provided Minutes Spent on Discharge: 45 Hospital Course: Patient is an 84-year-old female with past medical history as outlined was admitted to the ED on 12/16/2024 with complaint of generalized weakness. Her [id number] called the EMS due to patient being significantly weak on the day of admission. On the EMS arrived she was found to bradycardic with a heart rate down in the 20s. There was concern she might develop into V-fib so she was shocked with 200 J just prior to arrival in the ED. A CODE BLUE was called in the ED as there was concern she had lost her pulse. She received a dose of epinephrine and CPR was started. Patient was however noted to be moving so CPR was stopped. Her heart rate at that time was in the 30s so she was given 1 mg of atropine and her heart rate went up to the 90s and she regained consciousness. Patient was on verapamil and metoprolol due to palpitations. ABG showed pH of 7.24 with bicarb of 12 and PCO2 of 28. Labs showed WBC of 16.8 and hemoglobin of 11.8 as well as potassium of 5.4, anion gap of 19 and bicarb of 14.6 as well as creatinine of 1.73. She was admitted to the ICU and managed for symptomatic bradycardia with concern for cardiac arrest. Her verapamil and metoprolol were both held and cardiology was consulted. Of note patient was also hyperkalemic and she was given Kayexalate and hyperkalemia subsequently resolved. 2D echo done showed EF of 75% with hyperdynamic left ventricular systolic function and stage I diastolic dysfunction with no regional wall motion abnormalities noted. Cardiology felt this was symptomatic bradycardia due to the medication namely the metoprolol and verapamil. Her metoprolol was restarted at 50 mg twice daily. Of note she was also on spironolactone and this was discontinued due to the hyperkalemia. Patient was transferred out of the ICU and felt much better. She was discharged home on 12/18/2024. She is follow-up with her primary care doctor and follow-up with cardiology within 1 to 2 weeks. She was discharged with a prescription for p.o. metoprolol 50 mg twice daily and she was also started on p.o. amlodipine 10 mg daily per cardiology. Patient seen and examined prior to discharge. She felt well and had no complaints. She was eager to be discharged home. Labs and vitals reviewed. Home medication reviewed and reconciled. Physical Exam Const alert, oriented x3 and no apparent distress Constitutional Narrative: class I obesity with BMI of 34. General Appearance: cooperative and comfortable HEENT normocephalic, head/scalp atraumatic, hearing grossly normal bilaterally, moist oral mucous membranes and oropharynx normal Mouth: oral and palatal mucosa normal Eyes PERRL and EOMs intact bilaterally Neck no lymphadenopathy and supple Lymph Lymphatic: no lymphadenopathy noted Resp normal respiratory effort, normal air movement and clear to auscultation bilaterally Cardio regular rhythm, S1 normal heart sound, S2 normal heart sound and no murmurs GI normal to inspection, nondistended, normoactive bowel sounds, soft to palpation, non-tender and non-distended Extremity normal to inspection, full ROM, normal capillary refill, no clubbing, cyanosis or edema and no calf tenderness General Extremity: no tenderness to palpation of joints or extremities Skin no rashes or lesions noted General Skin Exam: no breakdown Neuro oriented x3, CN's II-XII intact bilaterally, moves all extremities, no focal motor deficits, no sensory deficits noted and deep tendon reflexes 2+ bilaterally Motor Exam: general weakness Psych thought process normal and cooperative Appearance: appropriate Weight / BMI Weight Weight: 176 lb 5.917 oz Body Mass Index (BMI) 34.6 ABG / Lab / Microbiology Data 12/18/24 05:35 12/18/24 05:35 Laboratory: Laboratory Results - last 24 hr 12/17/24 16:18: POC Glucose 197 H 12/17/24 21:52: POC Glucose 164 H 12/18/24 05:35: WBC 8.6, RBC 3.58 L, Hgb 10.9 L, Hct 31.9 L, MCV 89.1, MCH 30.4, MCHC 34.2, RDW Std Deviation 45.9 H, RDW Coeff of Graeme 14.2, Plt Count 217, MPV 9.2, Immature Gran % (Auto) 0.600, Neut % (Auto) 60.7, Lymph % (Auto) 24.5, [place] % (Auto) 12.5 H, Eos % (Auto) 1.5, Baso % (Auto) 0.2, Absolute Neuts (auto) 5.2, Absolute Lymphs (auto) 2.11, Nucleated RBC % 0, Sodium 131 L, Potassium 4.2, Chloride 99, Carbon Dioxide 21.6, Anion Gap 10, BUN 19, Creatinine 0.91, Estim Creat Clear Calc 43.85 L, Est GFR (MDRD) Non-Af 63, BUN/Creatinine Ratio 21.3 H, Glucose 172 H, Calcium 8.6 12/18/24 06:36: POC Glucose 169 H 12/18/24 11:28: POC Glucose 224 H Radiography Diagnostic Testing: Radiology Impression Echocardiogram 12/16/24 17:20 Interpretation Summary Normal LV size. Left ventricular systolic function is hyperdynamic. The left ventricular ejection fraction is 75 %. Stage 1 diastolic dysfunction. Contrast injection was performed. Ordering Physician: Noreen Llanes Referring Physician: Pee Infante Performed By: Ivette Ferrer RDCS, RVT D/C Instructions Discharge Activity: Return to Normal Activity Weight Bearing Status: Weight bearing as tolerated Call your doctor if you observe: Fever of 101 or Higher, Shortness of breath, Dizziness, Swelling in the ankles and Chest pain DC O2, CPAP, BIPAP Needs Home O2 Discharge instructions: No DC home with Oxygen: No Meaningful Use Info Meaningful Use Meaningful Use Diagnoses (Choose all that apply): None applicable Discharge Plan Admission Admit Date/Time: 12/16/24 16:23 Primary Reason for Your Visit: symptomatic bradycardia Attending Provider: Regina mAado Primary Care Provider: Pee Infante Consulting Providers: Noreen Llanes; Gal Roth; Cristian Juan; Jonathon King; Ron Mueller; Matt Marinelli; Jeyson Hinds; Neville Cruz; Matty Saldana; Hafsa Timmons; Elliot Tiwari; Eduardo Ferguson; Live Escamilla; Elle Rowe; Kriss Jasso; Rosanne Cabeazs; Aram Peña; Krishna Miranda; Inder Mcgarry; Elvis Watters; Rusty Fletcher; Alexandra Romero; Germán Anaya; Kirill Morrow; Kevin De Guzman Instructions Patient Instructions: Understanding Bradycardia Discharge Orders/Prescriptions Prescriptions: New amlodipine 10 mg Tablet 10 mg PO DAILY Qty: 30 2RF metoprolol tartrate 50 mg Tablet 50 mg PO BID Qty: 60 2RF Continued atorvastatin 80 mg tablet 80 mg PO QHS ezetimibe 10 mg tablet 10 mg PO DAILY lisinopril 40 mg tablet 40 mg PO DAILY metformin 500 mg tablet 1,000 mg PO BID pioglitazone 45 mg tablet 45 mg PO DAILY Trulicity 4.5 mg/0.5 mL pen injector 4.5 mg subcut QWEEK aspirin 81 mg tablet 81 mg PO DAILY Discontinued metoprolol tartrate 100 mg tablet 200 mg PO BID spironolactone 100 mg tablet 100 mg PO DAILY verapamil 240 mg tablet extended release 240 mg PO BID Referrals / Follow Up: Gal Roth MD [Med Staff - Active Staff] - Within 2 Weeks Pee Infante MD [Primary Care Provider] - Within 1 Week Disposition Disposition (needs filled in before D/C Order can be placed): Home, Self Care Charges/Coding Visit Charges Inpatient E&M: 89411 Disch Hosp >30min
[2024-12-18 13:46] VITALS: BP 123/86; PULSE 90; RESP 17; TEMP 36.6; O2SAT 94
--- NOTE | 2024-12-19 09:24 | CASEMGMT ---
Addendum entered by Aakash Webster 12/19/24 10:49: [facility] returns call and states that they are able to accept with a SOC date projected for tomorrow. TC to the pt at this time, no answer. VM left. Original Note: See previous RN CM note. TC to [facility] to follow up on referral. Referral is being reviewed at this time and will call this RN CM back with a response. CM to follow.
== END 2024-12-18 16:13 | disposition home health service (06) | DRG 308 ==
LOC: ED 14:22 → ICU 16:37 → PCU 12-17 16:33
PROVIDERS: Admitting Provider Internal Medicine; Emergency Provider Emergency Medicine; PCP Family Medicine; Visit Provider Student in an Organized Health Care Education/Training Program
DX: R00.1 Bradycardia, unspecified (principal); I46.8 Cardiac arrest due to other underlying condition; E87.1 Hypo-osmolality and hyponatremia; E11.9 Type 2 diabetes mellitus without complications; I10 Essential (primary) hypertension; E66.811 Obesity, class 1; E87.5 Hyperkalemia; I44.0 Atrioventricular block, first degree; E78.5 Hyperlipidemia, unspecified; T50.0X5A Adverse effect of mineralocorticoids and their antagonists, initial encounter; T46.4X5A Adverse effect of angiotensin-converting-enzyme inhibitors, initial encounter; T46.1X5A Adverse effect of calcium-channel blockers, initial encounter; R79.89 Other specified abnormal findings of blood chemistry; R00.0 Tachycardia, unspecified; T44.3X5A Adverse effect of other parasympatholytics [anticholinergics and antimuscarinics] and spasmolytics, initial encounter; R00.2 Palpitations; Z68.34 Body mass index [BMI] 34.0-34.9, adult; Z79.85 Long-term (current) use of injectable non-insulin antidiabetic drugs; Z79.82 Long term (current) use of aspirin; Z79.84 Long term (current) use of oral hypoglycemic drugs; Z79.899 Other long term (current) drug therapy
CPT/HCPCS: 36415; 36600; 71045; 80048; 81001; 82803; 82962; 83036; 83735; 84132; 84443; 84484; 85025; 87086; 87088; 92950; 93005; 93306; 97161; 97166; 99283; Q9957; A4216; C8929; J0612; J1938; J2405

== ENCOUNTER 2025-01-09 15:22 | Outpatient (RCR) | payer MEDICARE, SELFPAY ==
[2025-01-09 18:42] LABS: Osmolality, Urine 288 mOsm/KG
[2025-01-10 09:01] LABS: Mucous, Urine 0 SEEN /hpf (<or=2+); Red Blood Cells-Urine 0 SEEN /hpf (0-5); Squamous Epithelial Cells - UA 0 SEEN /hpf (5-10)
[2025-01-10 09:04] LABS: Color, Urine Yellow (Yellow); Glucose, Dipstick Normal (Normal); Ketone-Dipstick Negative (Negative); Leukocyte Esterase-Dipstick 500 /ul (Negative); Nitrite-Dipstick Negative (Negative); Occult Blood-Urine 25 /ul (Negative); Protein-Dipstick 30 mg/dl (Negative); Specific Gravity, Urine 1.010 (1.002-1.030); Urine Bilirubin Dipstick Negative (Negative)
== END 2025-01-09 18:00 | disposition home or self-care (01) ==
LOC: HHLAB 15:22
PROVIDERS: PCP Family Medicine; Referring Provider Internal Medicine Nephrology; Visit Provider Internal Medicine Nephrology
DX: I10 Essential (primary) hypertension (principal); R35.0 Frequency of micturition
CPT/HCPCS: 81001; 83935; 84300; 87086; 87088; 87186

== ENCOUNTER → 2025-01-09 | Outpatient (CLI) | payer MEDICARE, SELFPAY ==
[2025-01-09 13:10] LABS: Anion Gap 12 (5-15); BUN 16 mg/dL (4-19); BUN/Creat Ratio 19.1 RATIO (10-20); Calcium,Total 9.3 mg/dL (7.6-11.0); Carbon Dioxide 22.1 mmol/L (21.0-32.0); Chloride 100 mmol/L (98-108); Glucose 130 mg/dL (70-99); Potassium 4.3 mmol/L (3.3-5.1)
[2025-01-10 07:00] LABS: CORTISOL AM 15.30 ug/dL (6.02-18.40)
== END | disposition home or self-care (01) ==
PROVIDERS: PCP Family Medicine; Visit Provider Internal Medicine Nephrology
DX: I10 Essential (primary) hypertension (principal)
CPT/HCPCS: 80048; 82533; 84443

== ENCOUNTER → 2025-01-24 | Outpatient (CLI) | payer MEDICARE, SELFPAY ==
[2025-01-24 14:13] LABS: Color, Urine Straw (Yellow); Glucose, Dipstick 100 mg/dl (Normal); Ketone-Dipstick Negative (Negative); Leukocyte Esterase-Dipstick 25 /ul (Negative); Nitrite-Dipstick Negative (Negative); Occult Blood-Urine Negative /ul (Negative); Protein-Dipstick 15 mg/dl (Negative); Specific Gravity, Urine 1.010 (1.002-1.030); Urine Bilirubin Dipstick Negative (Negative)
== END | disposition home or self-care (01) ==
LOC: HHLAB 12:34
PROVIDERS: PCP Family Medicine; Referring Provider Family Medicine; Visit Provider Family Medicine
DX: I10 Essential (primary) hypertension (principal)
CPT/HCPCS: 81002; 87086; 87088

== ENCOUNTER → 2025-05-22 | Outpatient (CLI) | payer MEDICARE, SELFPAY ==
[2025-05-22 13:04] LABS: Anion Gap 10 (7-18); BUN 19 mg/dL (4-19); BUN/Creat Ratio 22.4 RATIO (10-20); Calcium,Total 9.4 mg/dL (7.6-11.0); Carbon Dioxide 24.0 mmol/L (20.0-29.0); Chloride 103 mmol/L (96-106); Glucose 186 mg/dL (70-99); Potassium 4.6 mmol/L (3.5-5.1)
== END | disposition home or self-care (01) ==
PROVIDERS: PCP Family Medicine; Referring Provider Nurse Practitioner Gerontology; Visit Provider Nurse Practitioner Gerontology
DX: I10 Essential (primary) hypertension (principal)
CPT/HCPCS: 36415; 80048